=== PATIENT | female | born 1980 | race Caucasian/White ===

== ENCOUNTER → 2020-08-02 07:44 | Outpatient (BNVA) | payer OTHER, SELFPAY | PROVIDERS: PCP Internal Medicine; Referring Provider Internal Medicine; Visit Provider Student in an Organized Health Care Education/Training Program | DX: Z76.89 Persons encountering health services in other specified circumstances (principal) ==

== ENCOUNTER 2020-10-31 09:15 | Outpatient (REF) | payer OTHER, SELFPAY ==
[2020-10-31 16:12] LABS: CT PCR NOT DETECTED (Not Detect.); NG PCR NOT DETECTED (Not Detect.)
== END 2020-10-31 09:16 | disposition home or self-care (01) ==
LOC: HO.LAB 09:15
PROVIDERS: PCP Internal Medicine; Visit Provider Obstetrics & Gynecology
DX: Z01.419 Encounter for gynecological examination (general) (routine) without abnormal findings (principal); N92.1 Excessive and frequent menstruation with irregular cycle; R10.9 Unspecified abdominal pain; L68.0 Hirsutism; Z88.5 Allergy status to narcotic agent; Z88.0 Allergy status to penicillin; Z88.8 Allergy status to other drugs, medicaments and biological substances; Z91.09 Other allergy status, other than to drugs and biological substances
CPT/HCPCS: 87491; 87591

== ENCOUNTER 2020-11-01 08:39 | Outpatient (REF) | payer OTHER, SELFPAY ==
[2020-11-01 10:08] LABS: HCG Quantitative < 2 mIU/mL; Thyroid Stimulating Hormone 1.72 uIU/mL (0.32-4.0)
[2020-11-02 09:02] LABS: DHEA Sulfate 124 mcg/dL (23-266)
[2020-11-03 12:12] LABS: Follicle Stimulating Hormone 3.2 mIU/mL; Lutenizing Hormone 2.8 mIU/mL
[2020-11-06 11:52] LABS: Testosterone, Free 4.5 pg/mL (0.1-6.4); Testosterone, Total 36 ng/dL (2-45)
== END 2020-11-01 08:40 | disposition home or self-care (01) ==
LOC: HO.LAB 08:39
PROVIDERS: PCP Internal Medicine; Visit Provider Obstetrics & Gynecology
DX: L68.0 Hirsutism (principal); N92.1 Excessive and frequent menstruation with irregular cycle
CPT/HCPCS: 36415; 82627; 83001; 83002; 83498; 84146; 84402; 84403; 84443; 84702

== ENCOUNTER 2020-11-06 15:16 | Outpatient (REF) | payer OTHER, SELFPAY ==
--- NOTE | ~2020-11-06 | US_ITS ---
EXAMINATION: PELVIC ULTRASOUND CLINICAL INFORMATION: Excessive and frequent menstruation COMPARISON: None TECHNIQUE: Transabdominal and transvaginal pelvic ultrasound. Transvaginal exam was performed for better visualization of the uterus and ovaries. FINDINGS: The uterus is retroverted and slightly tilted to the left. The uterus measures 9.2 x 4.4 x 6.0 cm in dimension. There may be an arcuate type uterus. No focal uterine lesion is seen. The endometrium is upper normal in thickness measuring 1.6 cm. Endometrium is homogeneous-appearing. There is a prominent vessel seen in the endometrium. No focal uterine lesion is seen. The cervix is normal appearing. The ovaries are normal. The right ovary measures 3.3 x 2.1 x 2.4 cm. The left ovary measures 3.2 x 1.4 x 2.2 cm. There is no fluid in the pelvis. US/US pelvic complete IMPRESSION: Question arcuate-type uterus. Endometrium is upper normal in thickness measuring 1.6 cm with prominent vessel.
--- NOTE | ~2020-11-06 | US_ITS ---
EXAMINATION: PELVIC ULTRASOUND CLINICAL INFORMATION: Excessive and frequent menstruation COMPARISON: None TECHNIQUE: Transabdominal and transvaginal pelvic ultrasound. Transvaginal exam was performed for better visualization of the uterus and ovaries. FINDINGS: The uterus is retroverted and slightly tilted to the left. The uterus measures 9.2 x 4.4 x 6.0 cm in dimension. There may be an arcuate type uterus. No focal uterine lesion is seen. The endometrium is upper normal in thickness measuring 1.6 cm. Endometrium is homogeneous-appearing. There is a prominent vessel seen in the endometrium. No focal uterine lesion is seen. The cervix is normal appearing. The ovaries are normal. The right ovary measures 3.3 x 2.1 x 2.4 cm. The left ovary measures 3.2 x 1.4 x 2.2 cm. There is no fluid in the pelvis. US/US transvaginal IMPRESSION: Question arcuate-type uterus. Endometrium is upper normal in thickness measuring 1.6 cm with prominent vessel.
== END 2020-11-06 15:17 | disposition home or self-care (01) ==
LOC: HO.US 15:16
PROVIDERS: Visit Provider Obstetrics & Gynecology
DX: N92.1 Excessive and frequent menstruation with irregular cycle (principal)
CPT/HCPCS: 76830; 76856

== ENCOUNTER 2020-11-14 14:01 | Outpatient (REF) | payer OTHER, SELFPAY | END 2020-11-14 14:02 | disposition home or self-care (01) | LOC: HO.LAB 14:01 | PROVIDERS: PCP Internal Medicine; Visit Provider Obstetrics & Gynecology | DX: N93.9 Abnormal uterine and vaginal bleeding, unspecified (principal); N92.1 Excessive and frequent menstruation with irregular cycle | CPT/HCPCS: 58100; 88305 ==

== ENCOUNTER → 2020-11-21 11:22 | Outpatient (BNVA) | payer OTHER, SELFPAY | PROVIDERS: PCP Internal Medicine; Visit Provider Obstetrics & Gynecology ==

== ENCOUNTER → 2020-11-22 10:46 | Outpatient (BNVA) | payer OTHER, SELFPAY | PROVIDERS: PCP Internal Medicine; Visit Provider Obstetrics & Gynecology | DX: N85.02 Endometrial intraepithelial neoplasia [EIN] (principal) | CPT/HCPCS: 99212 ==

== ENCOUNTER 2020-12-03 11:06 | Day surgery (SDC) | payer OTHER, SELFPAY ==
--- NOTE | 2020-11-28 14:03 | HO.ANESPROP2 ---
Documented by User: Susana Carrasco 11/28/20 14:04 HPI - Anesthesia Eval Consult details Narrative: 40yo F for D&C Hysteroscopy, Poss Polypectomy, Poss Myomectomy PMFSH Active Problems Active Problems: All Active Problems (Updated 11/21/20 @ 11:34 by Robert Leslie MD) Complex atypical endometrial hyperplasia (Acute) Screening mammogram, encounter for (Acute) Hirsutism (Acute) Menorrhagia with irregular cycle (Acute) Well woman exam (Acute) Fibromyalgia (Acute) Past Medical History Medical History Anxiety Depression Diabetes 1.5, managed as type 2 Fibromyalgia GERD (gastroesophageal reflux disease) IBS (irritable bowel syndrome) PCOS (polycystic ovarian syndrome) Family History Family History Maternal Grandmother Breast CA Surgical History Surgical History Hx of discectomy Social History Social History Alcohol intake: current Smoking Status: Never smoker Use of substances other than those prescribed or required for medical reasons: No Advance Directives: Yes Advance Directives on File: Yes Advance Directives Date on File: 12/03/20 Meds Allergies Allergy/AdvReac Type Severity Reaction Status Date / Time adhesive [ADHESIVE] Allergy Unknown RASH Verified 11/22/20 11:00 adhesives Allergy Unknown rash Verified 11/22/20 11:00 mold [MOLD] Allergy Unknown UNKNOWN Verified 11/22/20 11:00 nicotine Allergy Unknown unk Verified 11/22/20 11:00 opioids Allergy Unknown hallucinati Verified 11/22/20 11:00 ons Ortho Tri-Cyclen (28) Allergy Unknown muscle Verified 11/22/20 11:00 cramps penicillin V Allergy Unknown history of Verified 11/22/20 11:00 anaphylaxis in family Penicillins [PENICILLINS] Allergy Unknown strong Verified 11/22/20 11:00 family hx pollen extracts [POLLEN] Allergy Unknown UNKNOWN Verified 11/22/20 11:00 spironolactone Allergy Unknown muscle Verified 11/22/20 11:00 cramps Bupropion Allergy Unknown weight Uncoded 10/26/19 00:00 gain and constipation DUST Allergy Unknown UNKNOWN Uncoded 05/02/20 19:18 OPIODS Allergy Unknown HALLUCINATI Uncoded 05/02/20 19:18 ONS TOBACCO Allergy Unknown UNKNOWN Uncoded 05/02/20 19:18 Home Medications Medication Instructions Recorded Confirmed Last Taken Type escitalopram oxalate 20 mg tablet 20 mg PO DAILY 08/02/20 11/21/20 Unknown History pregabalin 200 mg capsule 200 mg PO BID 08/02/20 11/21/20 Unknown History lisdexamfetamine 40 mg capsule 40 mg PO DAILY 10/31/20 11/21/20 Unknown History Exam Exam Date and Time: November 28, 2020 1403 Assessment and Plan Assessment Anesthesia Assessment: Chart Reviewed Documented by User: Kathie Palma 12/03/20 12:56 PMFSH Past Medical History Medical History Anxiety Depression Diabetes 1.5, managed as type 2 Fibromyalgia GERD (gastroesophageal reflux disease) IBS (irritable bowel syndrome) PCOS (polycystic ovarian syndrome) Family History Family History Maternal Grandmother Breast CA Surgical History Surgical History Hx of discectomy Social History Social History Alcohol intake: current Smoking Status: Never smoker Use of substances other than those prescribed or required for medical reasons: No Advance Directives: Yes Advance Directives on File: Yes Advance Directives Date on File: 12/03/20 Meds Allergies Allergy/AdvReac Type Severity Reaction Status Date / Time adhesive [ADHESIVE] Allergy Unknown RASH Verified 11/22/20 11:00 adhesives Allergy Unknown rash Verified 11/22/20 11:00 mold [MOLD] Allergy Unknown UNKNOWN Verified 11/22/20 11:00 nicotine Allergy Unknown unk Verified 11/22/20 11:00 opioids Allergy Unknown hallucinati Verified 11/22/20 11:00 ons Ortho Tri-Cyclen (28) Allergy Unknown muscle Verified 11/22/20 11:00 cramps penicillin V Allergy Unknown history of Verified 11/22/20 11:00 anaphylaxis in family Penicillins [PENICILLINS] Allergy Unknown strong Verified 11/22/20 11:00 family hx pollen extracts [POLLEN] Allergy Unknown UNKNOWN Verified 11/22/20 11:00 spironolactone Allergy Unknown muscle Verified 11/22/20 11:00 cramps Bupropion Allergy Unknown weight Uncoded 10/26/19 00:00 gain and constipation DUST Allergy Unknown UNKNOWN Uncoded 05/02/20 19:18 OPIODS Allergy Unknown HALLUCINATI Uncoded 05/02/20 19:18 ONS TOBACCO Allergy Unknown UNKNOWN Uncoded 05/02/20 19:18 Home Medications Medication Instructions Recorded Confirmed Last Taken Type escitalopram oxalate 20 mg tablet 20 mg PO DAILY 08/02/20 11/21/20 Unknown History pregabalin 200 mg capsule 200 mg PO BID 08/02/20 11/21/20 Unknown History lisdexamfetamine 40 mg capsule 40 mg PO DAILY 10/31/20 11/21/20 Unknown History Exam Airway Mallampati Class: II TM Dist: >3cm Neck ROM: Full Loose/Missing/Broken Teeth: No Heart: RRR Lungs: CTA Assessment and Plan Assessment Anesthesia Assessment: Anesthesia Plan Discussed and Chart Reviewed Final Anesthetic Review NPO: Yes ASA Class: III Final Preanesthetic Review: Meds/Allgs Chart Reviewed, Consent Obtained/Reviewed and Anes Risks/Benef Reviewed Patient Risk: Intermediate Procedure Risk: Low Anesthetic Plan Anesthetic Plan: GA Disposition: Standard PACU
[2020-12-03 12:02] VITALS: BP 119/71; PULSE 76; RESP 18; TEMP 36.1; O2SAT 96; BMI 42.3
[2020-12-03 12:03] LABS: UPreg QC Valid YES; Urine Pregnancy NEGATIVE (NEGATIVE)
[2020-12-03 12:12] LABS: Glucose, Whole Blood 95 mg/dL (60-115)
[2020-12-03] MEDS: Lactated Ringers 1,000 ML 100 ML IVCONT (12:28)
--- NOTE | 2020-12-03 13:04 | MHC.SHP ---
Pre-Procedural Eval Section A The patient is an INPATIENT: No Changes since office visit: No Cold of Flu in the past 2 weeks, No New Medical Problems, No Changes in Medication and No Patient answered all questions The History & Physical has been completed within 30 days and I have reviewed it.: Yes Section B Chief Complaint: Endometrial Intraepithelial Neoplasia Allergies: Allergies Allergy/AdvReac Type Severity Reaction Status Date / Time adhesive [ADHESIVE] Allergy Unknown RASH Verified 11/22/20 11:00 adhesives Allergy Unknown rash Verified 11/22/20 11:00 mold [MOLD] Allergy Unknown UNKNOWN Verified 11/22/20 11:00 nicotine Allergy Unknown unk Verified 11/22/20 11:00 opioids Allergy Unknown hallucinati Verified 11/22/20 11:00 ons Ortho Tri-Cyclen (28) Allergy Unknown muscle Verified 11/22/20 11:00 cramps penicillin V Allergy Unknown history of Verified 11/22/20 11:00 anaphylaxis in family Penicillins [PENICILLINS] Allergy Unknown strong Verified 11/22/20 11:00 family hx pollen extracts [POLLEN] Allergy Unknown UNKNOWN Verified 11/22/20 11:00 spironolactone Allergy Unknown muscle Verified 11/22/20 11:00 cramps Bupropion Allergy Unknown weight Uncoded 10/26/19 00:00 gain and constipation DUST Allergy Unknown UNKNOWN Uncoded 05/02/20 19:18 OPIODS Allergy Unknown HALLUCINATI Uncoded 05/02/20 19:18 ONS TOBACCO Allergy Unknown UNKNOWN Uncoded 05/02/20 19:18 Plan Diagnosis/Plan: Unchanged I have reviewed the history and physical and performed a pertinent physical examination on my patient. No changes have occurred unless specified.
--- NOTE | 2020-12-03 13:04 | PM.OP ---
Brief Operative Note Date of Service: 12/03/20 Pre-op diagnosis: Complex atypical endometrial hyperplasia Post-op diagnosis: same Procedure: Hysteroscopy D&C Surgeon: Robert Leslie MD Anesthesia: MAC Estimated blood loss (mL): 0 Pathology: other (Endometrial Scrapping. Polyp) Condition: stable Disposition: PACU
--- NOTE | 2020-12-03 13:05 | W.PM.OPN ---
Operative Note Operative Note Date of Service: 12/03/20 Narrative: Preop Diagnosis: Complex atypical endometrial hyperplasia Operation: Diagnostic Hysteroscopy, Dilataion & Curettage Post Op Diagnosis: normal endometrial and endocervical cavity no evidence of pathology QBL: Minimal Anesthesia: MAC Surgeon: Robert Leslie MD Manager Equity: None Complication: None Pathology: Endometrial Scrapings Procedure: The patient was put in the dorsal lithotomy position, scrubbed, and draped in the usual manner. A sterile speculum was inserted in the patient's vagina. The anterior lip of the cervix was grasped with a single tooth tenaculum. The cervix was dilated up to 5 mm, then the scope was inserted in the patient's uterus. Inspection revealed normal endocervical & endometrial cavity with no evidence of pathology. The scope was taken out of the uterine cavity , then sharp curetting was carried on from the 4 quadrants of the uterine cavity with no complications. At the end of the procedure, all instruments were taken out of the patient uterine and vaginal cavity. The single tooth tenaculum was removed and homeostasis was assured using pressure. The patient tolerated the procedure well and was transferred to the PACU in a stable condition.
[2020-12-03 13:07] VITALS: BP 125/72; PULSE 66; RESP 18; TEMP 36.5; O2SAT 98
[2020-12-03 13:12] VITALS: BP 126/74; PULSE 67; RESP 18; O2SAT 98
[2020-12-03 13:17] VITALS: BP 119/74; PULSE 68; RESP 18; O2SAT 95
[2020-12-03 13:22] VITALS: BP 126/73; PULSE 68; RESP 18; O2SAT 95
[2020-12-03 13:37] VITALS: BP 121/68; PULSE 73; RESP 18; TEMP 36.5; O2SAT 96
== END 2020-12-03 14:11 ==
LOC: HO.SSS 11:07
PROVIDERS: PCP Internal Medicine; Visit Provider Obstetrics & Gynecology
PROC: 0UDB8ZZ Extraction of Endometrium, Via Natural or Artificial Opening Endoscopic (ICD-10-PCS; CPT 58558; principal; 2020-12-03 13:00)
DX: N85.02 Endometrial intraepithelial neoplasia [EIN] (principal); E28.2 Polycystic ovarian syndrome; E13.9 Other specified diabetes mellitus without complications; M79.7 Fibromyalgia; L68.0 Hirsutism; Z79.84 Long term (current) use of oral hypoglycemic drugs; Z79.899 Other long term (current) drug therapy; Z91.040 Latex allergy status; Z88.0 Allergy status to penicillin; Z88.8 Allergy status to other drugs, medicaments and biological substances
CPT/HCPCS: 58558; 81025; 82947; 88305; J2250; J2405; J3010

== ENCOUNTER → 2020-12-17 11:41 | Outpatient (BNVA) | payer OTHER, SELFPAY | PROVIDERS: PCP Internal Medicine; Visit Provider Obstetrics & Gynecology ==

== ENCOUNTER 2020-12-30 10:03 | Outpatient (REF) | payer OTHER, SELFPAY ==
[2020-12-30 14:35] LABS: Alanine Aminotransferase 43 U/L (0-31); Albumin Level 4.1 g/dL (3.5-5.0); Alkaline Phosphatase 142 U/L (39-117); Anion Gap 13 (12-20); Aspartate Amino Transferase 30 U/L (5-31); Bilirubin Total 0.4 mg/dL (0.0-1.0); Blood Urea Nitrogen 8 mg/dL (9-16); Calcium 9.3 mg/dL (8.4-10.2); Carbon Dioxide 28 mmol/L (22-29); Chloride 104 mmol/L (96-108); Cholesterol 180 mg/dL; Estimated Glomerular Filt Rate > 60; Glucose Fasting 106 mg/dL (60-99); HDL Cholesterol 49 mg/dL; LDL Cholesterol Calculated 102 mg/dl; Potassium 4.2 mmol/L (3.3-5.1); Sodium 141 mmol/L (135-145); Total Protein 6.9 g/dL (6.5-8.0); Triglycerides 148 mg/dL
[2020-12-30 14:46] LABS: Creatinine Urine 67.14 mg/dL; Microalbumin Urine < 5.0 mg/L
[2020-12-30 14:57] LABS: Free T4 (Free Thyroxine) 0.99 ng/dL (0.71-1.85); Thyroid Stimulating Hormone 0.82 uIU/mL (0.32-4.0); Vitamin D 25-OH Total 40.5 ng/mL (>30)
[2020-12-30 15:01] LABS: Vitamin B12 221 pg/mL (200-900)
[2020-12-31 12:01] LABS: LDL Cholesterol Direct 104 mg/dL (<100)
== END 2020-12-30 10:04 | disposition home or self-care (01) ==
LOC: HO.10HDL 10:03
PROVIDERS: Visit Provider Internal Medicine Endocrinology, Diabetes & Metabolism
DX: E11.9 Type 2 diabetes mellitus without complications (principal)
CPT/HCPCS: 36415; 80053; 80061; 82043; 82306; 82607; 83721; 84439; 84443

== ENCOUNTER 2020-12-30 12:04 | Outpatient (REF) | payer OTHER, SELFPAY ==
--- NOTE | ~2020-12-30 | MM_ITS ---
EXAMINATION: MM SCREENING DIGITAL BREAST TOMOSYNTHESIS, BILATERAL CLINICAL INFORMATION: Screening. Asymptomatic. Age 40. No prior breast imaging. Family history breast cancer, maternal grandmother. The lifetime risk of breast cancer based on the Tyrer-Cuzick Model is 18%. COMPARISON: None (current study represents initial baseline exam). TECHNIQUE: Digital breast tomosynthesis is performed in both the craniocaudal and mediolateral oblique views along with computer-aided detection (CAD). Synthesized 2D images are generated from the tomosynthesis. FINDINGS: There are scattered areas of fibroglandular density (ACR BI-RADS breast composition Category b). There are no significant masses, abnormal calcifications, or other abnormalities. The axilla and skin contours are unremarkable. MM/MM tomosynthesis screening BI IMPRESSION: No mammographic evidence of malignancy. ASSESSMENT: BI-RADS 1: Negative RECOMMENDATION: Routine annual mammography screening. This patient's information was entered into a reminder system with a target due date for their next mammogram.
== END 2020-12-30 12:05 | disposition home or self-care (01) ==
LOC: HO.MAMMO 12:04
PROVIDERS: Visit Provider Obstetrics & Gynecology
DX: Z12.31 Encounter for screening mammogram for malignant neoplasm of breast (principal); Z80.3 Family history of malignant neoplasm of breast; E11.9 Type 2 diabetes mellitus without complications; Z79.84 Long term (current) use of oral hypoglycemic drugs; E66.01 Morbid (severe) obesity due to excess calories; G47.33 Obstructive sleep apnea (adult) (pediatric); E28.2 Polycystic ovarian syndrome; E78.5 Hyperlipidemia, unspecified; E55.9 Vitamin D deficiency, unspecified
CPT/HCPCS: 77063; 77067; 82947; 99212

== ENCOUNTER 2021-04-23 10:10 | Outpatient (REF) | payer OTHER, SELFPAY ==
[2021-04-23 12:43] LABS: Alanine Aminotransferase 44 U/L (0-31); Albumin Level 3.9 g/dL (3.5-5.0); Alkaline Phosphatase 104 U/L (39-117); Anion Gap 13 (12-20); Aspartate Amino Transferase 41 U/L (5-31); Bilirubin Total 0.5 mg/dL (0.0-1.0); Blood Urea Nitrogen 5 mg/dL (9-16); Calcium 9.1 mg/dL (8.4-10.2); Carbon Dioxide 25 mmol/L (22-29); Chloride 106 mmol/L (96-108); Estimated Glomerular Filt Rate > 60; Glucose Random 121 mg/dL (60-115); Potassium 4.3 mmol/L (3.3-5.1); Sodium 140 mmol/L (135-145); Total Protein 6.5 g/dL (6.5-8.0)
== END 2021-04-23 10:11 | disposition home or self-care (01) ==
LOC: HO.LAB 10:10
PROVIDERS: PCP Internal Medicine; Visit Provider Nurse Practitioner Family
DX: M79.7 Fibromyalgia (principal)
CPT/HCPCS: 36415; 80053

== ENCOUNTER → 2021-10-27 11:42 | Outpatient (BNVA) | payer OTHER, SELFPAY | PROVIDERS: PCP Internal Medicine; Visit Provider Nurse Practitioner Family | DX: M79.7 Fibromyalgia (principal); Z79.899 Other long term (current) drug therapy | CPT/HCPCS: 99212 ==